=== PATIENT | male | born 1985 | race African-American/Black ===

== ENCOUNTER 2016-06-17 16:06 | Emergency (ER) | payer MEDICAID ==
[~2016-06-17] VITALS: Ht 177.8 cm; Wt 90.9 kg
[2016-06-17 18:03] VITALS: BP 127/86
[2016-06-17] MEDS: ACETAMINOPHEN 325 MG TABLET PO ONE ×2 (18:31→18:38)
== END 2016-06-17 18:50 | disposition home or self-care (01) ==
LOC: EMS 16:08
DX: M67.471 Ganglion, right ankle and foot (principal); M72.2 Plantar fascial fibromatosis
CPT/HCPCS: 99281; 99282

== ENCOUNTER 2019-04-14 22:42 | Emergency (ER) | payer SELFPAY ==
[~2019-04-14] VITALS: Ht 177.8 cm; Wt 113.6 kg
[2019-04-14 23:26] LABS: BASOPHILS % (AUTO) 0.6 % (0.0-2.0); EOSINOPHILS % (AUTO) 1.2 % (1.0-6.0); HEMATOCRIT 44.6 % (41-53); LYMPHOCYTES # (AUTO) 2.4 K/uL (1.0-4.8); LYMPHOCYTES % (AUTO) 22.9 % (22.0-44.0); MEAN CORPUSCULAR HEMOGLOBIN 27.7 pg (26.0-34.0); MEAN CORPUSCULAR HGB CONC 33.7 G/dL (31.0-37.0); MEAN CORPUSCULAR VOLUME 82 fL (80-100); MONOCYTES # (AUTO) 1.1 K/uL (0.1-1.0); MONOCYTES % (AUTO) 10.7 % (2.0-9.0); NEUTROPHILS # (AUTO) 6.7 K/uL (1.8-7.7); NEUTROPHILS % (AUTO) 64.6 % (40.0-70.0); PLATELET COUNT (AUTO) 287 K/uL (150-450); RED BLOOD CELL COUNT(AUTO) 5.44 MIL/uL (4.50-5.90); RED CELL DISTRIBUTION WIDTH 13.8 % (11.5-14.5)
[2019-04-14 23:36] LABS: ANION GAP 14 mmol/L (8-16); CALCIUM, TOTAL 9.5 mg/dL (8.8-10.5); CARBON DIOXIDE 25 mmol/L (22-29); CHLORIDE 99 mmol/L (98-107); CREATININE 1.17 mg/dL (0.60-1.30); GLOMERULAR FILTR. RATE CALC > 60 mL/min (>60); GLUCOSE,RANDOM 94 mg/dL (70-110); POTASSIUM 3.8 mmol/L (3.5-5.1); SODIUM SERUM 138 mmol/L (136-145); UREA NITROGEN, BLOOD 12 mg/dL (7-18)
[2019-04-14 23:42] LABS: ALANINE AMINOTRANSFERASE 41 U/L (12-78); ALBUMIN 4.3 g/dL (3.4-5.0); ALKALINE PHOSPHATASE 89 U/L (46-116); ASPARTATE AMINOTRANSFERASE 37 U/L (15-37); BILIRUBIN,TOTAL 0.7 mg/dL (0.1-1.0); LIPASE 197 U/L (73-393); TOTAL PROTEIN, SERUM 8.4 g/dL (6.4-8.2)
[2019-04-15] MEDS ORDERED: PB/HYOSCY/ATR/SCOP/LIDO/MAALOX 55 ML BOTTLE PO ONE (01:00)
[2019-04-15] MEDS ORDERED: FAMOTIDINE 20 MG TABLET PO ONE (01:00)
[2019-04-15 02:10] VITALS: BP 124/86
== END 2019-04-15 02:35 | disposition home or self-care (01) ==
LOC: EMS 22:43
DX: F10.129 Alcohol abuse with intoxication, unspecified (principal); R10.13 Epigastric pain; F17.210 Nicotine dependence, cigarettes, uncomplicated; Y90.9 Presence of alcohol in blood, level not specified